=== PATIENT | male | born 1970 | race Caucasian/White ===

== ENCOUNTER 2017-01-22 16:56 | Emergency (ER) | payer OTHER ==
[~2017-01-22] VITALS: Ht 188 cm; Wt 109.0 kg
[2017-01-22 17:15] VITALS: BP 128/81; PULSE 78; RESP 18; TEMP 98.8; O2SAT 95
== END 2017-01-22 17:25 | disposition left against medical advice (07) ==
LOC: PHED 16:56
DX: T14.8 Other injury of unspecified body region (principal); Z53.21 Procedure and treatment not carried out due to patient leaving prior to being seen by health care provider; W57.XXXD Bitten or stung by nonvenomous insect and other nonvenomous arthropods, subsequent encounter
CPT/HCPCS: 99281